=== PATIENT | female | born 1990 | race Caucasian/White ===

== ENCOUNTER → 2017-02-01 | Outpatient (CLI) | payer OTHER ==
[~2017-02-01] MED LIST: ADVIN25/60 INH; FEXO1TAB58 PO; HYDR-5688 PO; LEVAAER2 PO; MONT1TAB3 PO
== END | disposition home or self-care (01) ==
LOC: C.LABSPEC 11:22
PROVIDERS: ATTEND Nurse Practitioner Family
DX: R35.0 Frequency of micturition (principal)

== ENCOUNTER → 2017-02-04 | Outpatient (CLI) | payer BC, OTHER ==
[2017-02-04 13:47] LABS: BLOOD UREA NITROGEN 14 mg/dl (7-18); CREATININE 0.85 mg/dl (0.60-1.20)
== END | disposition home or self-care (01) ==
LOC: C.LAB1850 11:23
PROVIDERS: ATTEND Nurse Practitioner Family
DX: Z87.39 Personal history of other diseases of the musculoskeletal system and connective tissue (principal)

== ENCOUNTER 2021-05-13 08:26 | Inpatient (IN) ==
[2021-05-13] MEDS ORDERED: OXYTOCIN 30 UNITS/500 ML BAG IV PRN ×3 (08:33→22:10)
[2021-05-13] MEDS ORDERED: PENICILLIN G POTASSIUM 6 MU in DEXTROSE 5% 250 ML IV STA (08:39)
[2021-05-13 09:08] LABS: Hematocrit (blood only) 33.8 % (37-47); Hemoglobin 11.5 g/dL (12.0-16.0); Mean Corpuscular Volume 88.3 fL (80-100); Mean Platelet Volume 9.6 fL (7.4-10.4); Platelet Count 232 K/uL (130-400); RDW Standard Deviation 45.3 fL (36.4-46.3); Red Blood Count 3.83 M/uL (4.2-5.4); White Blood Count 8.17 K/uL (4.8-10.8)
[2021-05-13] MEDS: LACTATED RINGER'S 1,000 ML IV PRN ×3 (09:57→17:26)
[2021-05-13] MEDS ORDERED: ePHEDrine sulfate 50 MG/ML AMP ONE (12:16)
[2021-05-13] MEDS ORDERED: fentaNYL citrate 100 MCG/2 ML VIAL ONE (12:16)
[2021-05-13] MEDS ORDERED: BUPIVACAINE 0.25% 30 ML VIAL ONE (12:16)
[2021-05-13] MEDS ORDERED: fentaNYL 2MCG/ML ROPIVACAINE 1.25MG/ML 100 ML BAG EPI ONE (12:16)
--- NOTE | 2021-05-13 12:41 | Anesthesiology Consultation ---
Date of Service May 13, 2021 Assessment & Plan (1) Encounter for pre-operative examination: Chart Review Chart Review: Acceptable Risk for Surgery and Patient NOT seen in Pre Admission Testing Consults Requested none History Height/Weight Height: 5 ft 4.5 in Weight: 85 kg Allergies Allergy/AdvReac Type Severity Reaction Status Date / Time No Known Allergies Allergy Verified 05/12/21 13:59 Medications Home Medications Medication Instructions Recorded Confirmed Last Taken prenat.vits,bhumi,yei-zgrn-enwgw 1 tab PO DAILY 12/17/20 05/13/21 05/12/21 08:00 acetaminophen 500 mg tablet 500 mg PO QID PRN 05/13/21 05/13/21 Unknown lactobacillus combination no.4 3 3,000 mmu cells PO DAILY 05/13/21 05/13/21 05/12/21 billion cell capsule (Probiotic) Active Medications Generic Name Dose Route Start Last Admin Trade Name Freq PRN Reason Stop Dose Admin Oxytocin 30 units in 500 mls @ 5 mls/hr 05/13/21 08:33 05/13/21 12:35 Pitocin IV 05/15/21 08:32 0.42 units/hr .Q24H PRN 7 mls/hr Labor Induction/Augmentation Titration Protocol 0.3 UNITS/HR Lactated Ringer's 1,000 mls @ 125 mls/hr 05/13/21 08:33 05/13/21 12:13 Lr IV 05/15/21 08:32 999 mls/hr .Q8H PRN Infusion L&D Protocol Protocol Past Medical History Medical History Anxiety Back pain Injury to back at 8 weeks . Diagnosed as sciatic pain. Chronic migraine Pancreatitis Past Family History Family History Father Hypertension Mother Hypotension Grandmother (Paternal) Diabetes Breast cancer Hypertension Grandmother (Maternal) Diabetes Other No significant family history Past Surgical History Surgical History History of appendectomy Hx of cholecystectomy [place] teeth extracted Social History Smoking Status: Never smoker Hx Alcohol Use: No Hx Substance Use: No Physical Exam Vital Signs Last Vital Signs Temp 36.6 C 11/23/21 11:07 Pulse 75 05/13/21 11:57 Resp 18 05/13/21 11:07 BP 116/70 05/13/21 11:57 Testing Laboratory Results 05/13/21 08:49
--- NOTE | 2021-05-13 13:20 | History & Physical Report ---
Date of Service May 13, 2021 Assessment & Plan (1) Encounter for induction of labor: (2) Back pain affecting : Plan: plan pit induction, pcn for gbs. arom as indicated. epidural on demand. fetus category one. anticipate . addendum--Patient at 12:30 is requesting epidural. Anesthesia is reluctant to place without any imaging to note no issues with spine. Dr. Atwood is discussing the issue with the patient. Unfortunately this was not addressed before starting induction. Can have the option of going unmedicated. Can stop induction now. Get urgent MRI. If nl mri, then can place epidural and proceed. If cannot place epidural, can then restart and go unmedicated or can offer primary c/s with likely general anesthesia. Dr. Atwood is discussing options with the patient now. There is no reason we can't stop the induction at this po int. Admission and Anticipated Discharge Date Admission Date: May 13, 2021 History of Present Illness Chief Complaint: induction for back pain Primary Care Provider: Arash Montelongo MD Patient is a 31yof, with iup at40 0/7 weeks who presents to labor and delivery for elective induction. Patient's complicated by back pain. she was evaluated by ortho and placed on FMLA. there was a suggestion that she be induced by her due date. Apparantly has significant sciatica. Did apparently do some PT. Patient notes the breen bulb fell out at 5:30 am. She notes some spotting and cramping. No lof. +fm. GBS positive urine. LG pap with neg colpo. Plan pap and colpo pp. OB Labs: Blood Type B Negative 02/19/21 Antibody Screen NEGATIVE 02/19/21 Hemoglobin 11.6 g/dL (12.0-16.0) L 02/19/21 Hematocrit 34.1 % (37-47) L 02/19/21 Mean Corpuscular Volume 89.7 fL (80-100) 07/08/20 Platelet Count 243 K/uL (130-400) 07/08/20 Rapid Plasma Reagin Nonreactive (Nonreactive) 12/27/20 Glucose 1 Hour 50 gm Load 90 mg/dl (70-130) 02/19/21 OB Optional Labs: Thyroid Stimulating Hormone (TSH) 0.790 uIu/ml (0.300-4.500) 07/08/20 Labs Reviewed: Initial OB Labs (09/17/20) Blood Type & RH B negative Antibody Screen negative HCT/HGB 40.7/13.3 Platelets 248 Pap Test LSIL Chlamydia negative Gonorrhea negative Rubella immune RPR Urine Culture/Screen HBsAg negative HIV negative MCV 93.2 Ultrasound NIPT- Low risk CF/SMA negative Allergies Allergy/AdvReac Type Severity Reaction Status Date / Time No Known Allergies Allergy Verified 05/12/21 13:59 Home Medications Medication Instructions Recorded Confirmed Type prenat.vits,bhumi,dqv-ntdu-jtwjl 1 tab PO DAILY 12/17/20 05/13/21 History acetaminophen 500 mg tablet 500 mg PO QID PRN 05/13/21 05/13/21 History lactobacillus combination no.4 3 3,000 mmu cells PO DAILY 05/13/21 05/13/21 History billion cell capsule (Probiotic) Patient History Medical History Anxiety Back pain Injury to back at 8 weeks . Diagnosed as sciatic pain. Chronic migraine Pancreatitis Surgical History History of appendectomy Hx of cholecystectomy [place] teeth extracted Family History Father Hypertension Mother Hypotension Grandmother (Paternal) Diabetes Breast cancer Hypertension Grandmother (Maternal) Diabetes Other No significant family history Social History Smoking Status: Never smoker Hx Alcohol Use: No Hx Substance Use: No Preferred Language: [place]er Communication Ability: Effective Aircraft [employer] Required: No Beliefs That Will Affect Care: None marital status: marital status details: [phone] Joanne, leonardo mom Current Living Situation: Spouse and Parent Current Living Situation Comment: Mother, father, spouse and dogs current occupational status: employed current occupation: [employer] @ [place] in [employer] Other Information That Helps Us Care for You: No Feels Safe at Home: Yes Safety Concerns: Feels Safe At This Time Assistive Devices: Glasses OB History g1--current [employer] History noncontributory Physical Exam Physical Exam: cx---2/mid/soft at admission toco--q4-5 efm--130s with mod variability, accels to 150s, no decels Results & Data ([facility]) Vital Signs (Past 12 Hours) Vital Signs Temp Pulse Resp BP Pulse Ox 05/13/21 13:11 79 99 05/13/21 13:10 90 129/88 05/13/21 11:57 75 116/70 05/13/21 11:07 36.6 C 78 18 123/72 05/13/21 10:08 78 109/62 05/13/21 08:49 37.0 C 18 05/13/21 08:47 78 112/70 Coding Level of Care Code None Diagnoses Encounter for induction of labor Z34.90 Back pain affecting O99.891; M54.9
--- NOTE | 2021-05-13 14:16 | Communication Note ---
Date of Service: May 13, 2021 Patient seen and evaluated by anesthesia. After her neuro exam, she feels she is probably ok with proceeding with epidural. She discussed potential risks of proceeding with that. Patient is concerned that if we get mri now, if another one indicated after delivery , it will not be covered by insurance. A legitimate concerns. Discussed other options of unmedicated labor (which I do not think the patient will tolerate well) or can proceed with c/s under general--discussed r/b/se of c/s, general anesthesia and implications on further pregnancies. Patient desires to take the risk of epidural. Plan to proceed with this. fetus category one. Pitocin was d/c while considering all of this and will be restarted after epidural.
[2021-05-13] MEDS: PENICILLIN G POTASSIUM 3 MU in DEXTROSE 5% 100 ML IV PRN ×2 (14:18→19:02)
[2021-05-13] MEDS ORDERED: ePHEDrine sulfate 50 MG/ML AMP IV PRN (14:21)
[2021-05-13] MEDS ORDERED: NALOXONE HCL 1 MG in SODIUM CHLORIDE 0.9% 1000ML 1,000 ML IV PRN (14:21)
[2021-05-13] MEDS ORDERED: diphenhydrAMINE 50 MG/ML VIAL IV PRN (14:21)
[2021-05-13] MEDS ORDERED: fentaNYL 2MCG/ML ROPIVACAINE 1.25MG/ML 100 ML BAG EPI PRN (14:21)
[2021-05-13] MEDS ORDERED: NALOXONE HCL 0.4 MG/1 ML VIAL/CARP IV PRN (14:21)
[2021-05-13] MEDS ORDERED: NALBUPHINE HCL INJ 10 MG/ML AMP IV PRN (14:21)
[2021-05-13] MEDS: SODIUM CHLORIDE 0.9% INJ 10 ML VIAL ONE ×2 (14:55→15:56)
[2021-05-13] MEDS: ONDANSETRON INJ 2 MG/ML 2 ML VIAL IV PRN ×2 (15:41→21:20)
--- NOTE | 2021-05-13 15:50 | Labor Progress Brief Note ---
Date of Service May 13, 2021 Subjective comfortable with epidural Assessment & Plan (1) Encounter for induction of labor: Plan: Continue current management. fetus category one. Admission and Anticipated Discharge Date Admission Date: May 13, 2021 Physical Exam Physical Exam: cx--/-2 arom--thin mec efm--130s with mod variablilty, accels to 170s, no decels toco--occasional , pit just restarted at 1 Results & Data ([facility]) Vital Signs (Past 12 Hours) Vital Signs Temp Pulse Resp BP Pulse Ox 05/13/21 15:45 37.1 C 80 18 107/59 L 97 05/13/21 15:42 95 H 93 05/13/21 15:40 104 H 105/58 L 95 05/13/21 15:36 121 H 113/71 05/13/21 15:35 130 H 97 05/13/21 15:31 18 05/13/21 15:30 94 H 109/66 97 05/13/21 15:25 90 18 105/56 L 94 05/13/21 15:24 87 94 05/13/21 15:20 83 18 108/58 L 95 05/13/21 15:18 92 H 94 05/13/21 15:15 90 18 109/68 97 05/13/21 15:13 93 H 110/62 05/13/21 15:11 100 H 108/59 L 05/13/21 15:10 99 H 18 97 05/13/21 15:09 105 H 108/59 L 05/13/21 15:07 96 H 18 115/60 05/13/21 15:05 101 H 18 126/66 97 05/13/21 15:03 99 H 18 103/52 L 05/13/21 15:01 94 H 18 104/52 L 05/13/21 15:00 96 H 97 05/13/21 14:59 88 18 105/57 L 05/13/21 14:57 37.1 C 91 H 20 107/55 L 05/13/21 14:55 90 20 103/51 L 96 05/13/21 14:53 83 103/50 L 05/13/21 14:51 90 118/60 05/13/21 14:50 103 H 96 05/13/21 14:49 100 H 124/79 05/13/21 14:47 87 138/69 05/13/21 14:45 83 134/77 96 05/13/21 14:40 84 97 05/13/21 14:35 84 98 05/13/21 14:30 78 97 05/13/21 14:25 91 H 98 05/13/21 14:20 79 99 05/13/21 14:15 89 98 05/13/21 14:10 85 98 05/13/21 14:05 83 99 05/13/21 14:00 89 97 05/13/21 13:55 86 98 05/13/21 13:51 81 93 05/13/21 13:50 78 98 05/13/21 13:45 75 98 05/13/21 13:40 87 98 05/13/21 13:35 83 98 05/13/21 13:30 90 96 05/13/21 13:25 86 98 05/13/21 13:20 37.0 C 82 18 98 05/13/21 13:11 79 99 05/13/21 13:10 90 129/88 05/13/21 11:57 75 116/70 05/13/21 11:07 36.6 C 78 18 123/72 05/13/21 10:08 78 109/62 05/13/21 08:49 37.0 C 18 05/13/21 08:47 78 112/70 Coding Level of Care Code None Diagnoses Encounter for induction of labor Z34.90
--- NOTE | 2021-05-13 17:22 | Labor Progress Brief Note ---
Date of Service May 13, 2021 Subjective comfortable Assessment & Plan (1) Encounter for induction of labor: Plan: Just restarted pit. NOw having variable earlies with contractions. category two strip but good variability and overall reassuring. May need to initiate amnioinfusion if persist. The contractions look adequate, but just need to be closer together. Admission and Anticipated Discharge Date Admission Date: May 13, 2021 Physical Exam Physical Exam: cx--unchanged toco--q5min, long, pit at 1 iupc inserted--first one did not work and replaced and worked fht--while on back to drain bladder , decel to 90s that lasted for about 6 minutes right on top of a contraction. Attempted to place an FSE--worked for a few minutes then suddenly stopped working. Well attached to scalp. Tried to problem solve but would not work so external belt replaced. [id number] wtih mod variability. having variables /early with contractions since arom. Results & Data ([facility]) Vital Signs (Past 12 Hours) Vital Signs Temp Pulse Resp BP Pulse Ox 05/13/21 17:17 80 98/59 L 05/13/21 17:15 85 97 05/13/21 17:10 79 96 05/13/21 17:05 79 95 05/13/21 17:02 72 91/50 L 05/13/21 17:00 76 95 05/13/21 16:55 74 96 05/13/21 16:50 76 96 05/13/21 16:49 71 99/58 L 05/13/21 16:45 70 97 05/13/21 16:40 71 96 05/13/21 16:35 75 95 05/13/21 16:33 74 101/58 L 05/13/21 16:30 76 95 05/13/21 16:25 80 95 05/13/21 16:20 76 95 05/13/21 16:18 73 100/55 L 05/13/21 16:15 77 95 05/13/21 16:10 76 95 05/13/21 16:05 83 94 05/13/21 16:02 74 99/56 L 05/13/21 16:00 82 96 05/13/21 15:58 82 94 05/13/21 15:55 79 94 05/13/21 15:53 83 94 05/13/21 15:50 82 97 05/13/21 15:45 37.1 C 80 18 107/59 L 97 05/13/21 15:42 95 H 93 05/13/21 15:40 104 H 105/58 L 95 05/13/21 15:36 121 H 113/71 05/13/21 15:35 130 H 97 05/13/21 15:31 18 05/13/21 15:30 94 H 109/66 97 05/13/21 15:25 90 18 105/56 L 94 05/13/21 15:24 87 94 05/13/21 15:20 83 18 108/58 L 95 05/13/21 15:18 92 H 94 05/13/21 15:15 90 18 109/68 97 05/13/21 15:13 93 H 110/62 05/13/21 15:11 100 H 108/59 L 05/13/21 15:10 99 H 18 97 05/13/21 15:09 105 H 108/59 L 05/13/21 15:07 96 H 18 115/60 05/13/21 15:05 101 H 18 126/66 97 05/13/21 15:03 99 H 18 103/52 L 05/13/21 15:01 94 H 18 104/52 L 05/13/21 15:00 96 H 97 05/13/21 14:59 88 18 105/57 L 05/13/21 14:57 37.1 C 91 H 20 107/55 L 05/13/21 14:55 90 20 103/51 L 96 05/13/21 14:53 83 103/50 L 05/13/21 14:51 90 118/60 05/13/21 14:50 103 H 96 05/13/21 14:49 100 H 124/79 05/13/21 14:47 87 138/69 05/13/21 14:45 83 134/77 96 05/13/21 14:40 84 97 05/13/21 14:35 84 98 05/13/21 14:30 78 97 05/13/21 14:25 91 H 98 05/13/21 14:20 79 99 05/13/21 14:15 89 98 05/13/21 14:10 85 98 05/13/21 14:05 83 99 05/13/21 14:00 89 97 05/13/21 13:55 86 98 11/23/21 13:51 81 93 05/13/21 13:50 78 98 05/13/21 13:45 75 98 05/13/21 13:40 87 98 05/13/21 13:35 83 98 05/13/21 13:30 90 96 05/13/21 13:25 86 98 05/13/21 13:20 37.0 C 82 18 98 05/13/21 13:11 79 99 05/13/21 13:10 90 129/88 05/13/21 11:57 75 116/70 05/13/21 11:07 36.6 C 78 18 123/72 05/13/21 10:08 78 109/62 05/13/21 08:49 37.0 C 18 05/13/21 08:47 78 112/70 Coding Level of Care Code None Diagnoses Encounter for induction of labor Z34.90
[2021-05-13] MEDS ORDERED: NURSING L&D Epidural Breakthrough Pain Update ONE (19:46)
--- NOTE | 2021-05-13 20:47 | Labor Progress Brief Note ---
Date of Service May 13, 2021 Subjective comfortable Assessment & Plan (1) Encounter for induction of labor: Plan: Fetus overall reassuring category two. Making progress so will not go up on pit despite abnl contraction pattern. Will hopefully be able to labor down. Will continue to watch closely. Hope for vaginal delivery. Admission and Anticipated Discharge Date Admission Date: May 13, 2021 Physical Exam Physical Exam: cx--rim/0 toco--q2-4, runs of contractions, pit at 13 efm--130s with mod variability, small accels, variable /early with contractions, one prolonged decel with an episode of tachysystole. Only tolerates left sided positioning. Results & Data ([facility]) Vital Signs (Past 12 Hours) Vital Signs Temp Pulse Resp BP Pulse Ox 05/13/21 20:40 80 99 05/13/21 20:35 88 98 05/13/21 20:34 82 107/58 L 05/13/21 20:30 75 100 05/13/21 20:25 73 100 05/13/21 20:20 82 97 05/13/21 20:17 75 101/55 L 05/13/21 20:15 76 97 05/13/21 20:10 75 99 05/13/21 20:05 76 98 05/13/21 20:03 73 106/64 05/13/21 20:00 72 16 96 05/13/21 19:55 75 99 05/13/21 19:50 78 98 05/13/21 19:47 71 110/61 05/13/21 19:45 74 97 05/13/21 19:40 75 99 05/13/21 19:35 74 97 05/13/21 19:33 74 116/66 05/13/21 19:30 78 18 97 05/13/21 19:25 79 99 05/13/21 19:20 82 97 05/13/21 19:18 75 127/72 05/13/21 19:15 105 H 97 05/13/21 19:13 104 H 86 L 05/13/21 19:10 36.6 C 84 18 92 05/13/21 19:05 78 99 05/13/21 19:04 71 129/65 05/13/21 19:00 72 98 05/13/21 18:55 71 95 05/13/21 18:50 70 98 05/13/21 18:49 67 103/64 05/13/21 18:45 76 99 05/13/21 18:40 76 98 05/13/21 18:35 68 18 98 05/13/21 18:32 67 105/59 L 05/13/21 18:30 70 99 05/13/21 18:25 74 98 05/13/21 18:20 76 100 05/13/21 18:18 71 107/62 05/13/21 18:15 96 H 98 05/13/21 18:10 68 96 05/13/21 18:05 77 18 98 05/13/21 18:03 67 103/57 L 05/13/21 18:00 77 98 05/13/21 17:55 70 98 05/13/21 17:50 71 98 05/13/21 17:47 70 92/53 L 05/13/21 17:45 73 99 05/13/21 17:40 69 98 05/13/21 17:37 69 90/51 L 05/13/21 17:35 69 97 05/13/21 17:32 74 89/54 L 05/13/21 17:30 71 18 95 05/13/21 17:25 75 95 05/13/21 17:20 84 97 05/13/21 17:17 80 98/59 L 05/13/21 17:15 36.9 C 85 20 97 05/13/21 17:10 79 96 05/13/21 17:05 79 95 05/13/21 17:02 72 91/50 L 05/13/21 17:00 76 95 05/13/21 16:58 18 05/13/21 16:55 74 96 05/13/21 16:50 76 96 05/13/21 16:49 71 99/58 L 05/13/21 16:45 70 97 05/13/21 16:40 71 96 05/13/21 16:35 75 95 05/13/21 16:33 74 101/58 L 05/13/21 16:30 76 18 95 05/13/21 16:25 80 95 05/13/21 16:20 76 95 05/13/21 16:18 73 100/55 L 05/13/21 16:15 77 95 05/13/21 16:10 76 95 05/13/21 16:05 83 94 05/13/21 16:02 74 99/56 L 05/13/21 16:00 82 18 96 05/13/21 15:58 82 94 05/13/21 15:55 79 94 05/13/21 15:53 83 94 05/13/21 15:50 82 97 05/13/21 15:45 37.1 C 80 18 107/59 L 97 05/13/21 15:42 95 H 93 05/13/21 15:40 104 H 105/58 L 95 05/13/21 15:36 121 H 113/71 05/13/21 15:35 130 H 97 05/13/21 15:31 18 05/13/21 15:30 94 H 109/66 97 05/13/21 15:25 90 18 105/56 L 94 05/13/21 15:24 87 94 05/13/21 15:20 83 18 108/58 L 95 05/13/21 15:18 92 H 94 05/13/21 15:15 90 18 109/68 97 05/13/21 15:13 93 H 110/62 05/13/21 15:11 100 H 108/59 L 05/13/21 15:10 99 H 18 97 05/13/21 15:09 105 H 108/59 L 05/13/21 15:07 96 H 18 115/60 05/13/21 15:05 101 H 18 126/66 97 05/13/21 15:03 99 H 18 103/52 L 05/13/21 15:01 94 H 18 104/52 L 05/13/21 15:00 96 H 97 05/13/21 14:59 88 18 105/57 L 05/13/21 14:57 37.1 C 91 H 20 107/55 L 05/13/21 14:55 90 20 103/51 L 96 05/13/21 14:53 83 103/50 L 05/13/21 14:51 90 118/60 05/13/21 14:50 103 H 96 05/13/21 14:49 100 H 124/79 05/13/21 14:47 87 138/69 05/13/21 14:45 83 134/77 96 05/13/21 14:40 84 97 05/13/21 14:35 84 98 05/13/21 14:30 78 97 05/13/21 14:25 91 H 98 05/13/21 14:20 79 99 05/13/21 14:15 89 98 05/13/21 14:10 85 98 05/13/21 14:05 83 99 05/13/21 14:00 89 97 05/13/21 13:55 86 98 05/13/21 13:51 81 93 05/13/21 13:50 78 98 05/13/21 13:45 75 98 05/13/21 13:40 87 98 05/13/21 13:35 83 98 05/13/21 13:30 90 96 05/13/21 13:25 86 98 05/13/21 13:20 37.0 C 82 18 98 05/13/21 13:11 79 99 05/13/21 13:10 90 129/88 05/13/21 11:57 75 116/70 05/13/21 11:07 36.6 C 78 18 123/72 05/13/21 10:08 78 109/62 05/13/21 08:49 37.0 C 18 05/13/21 08:47 78 112/70 Coding Level of Care Code None Diagnoses Encounter for induction of labor Z34.90
[2021-05-13] MEDS ORDERED: DIPHTHERIA/TETANUS/PERTUSSIS 0.5 ML SYR/VIAL IM ONE (22:10)
[2021-05-13] MEDS ORDERED: SUPERCREAM 0.870% 15 GM JAR EXT PRN (22:10)
[2021-05-13] MEDS ORDERED: bisacodyL 10 MG SUPP PR PRN (22:10)
[2021-05-13] MEDS ORDERED: BENZOCAINE 20% AER SPR 82.5 GM CAN EXT PRN (22:10)
[2021-05-13] MEDS ORDERED: ACETAMINOPHEN 325 MG TAB PO PRN (22:10)
[2021-05-13] MEDS ORDERED: HYDROCORTISONE ACETATE 25 MG SUPP PR PRN (22:10)
[2021-05-13] MEDS ORDERED: oxyCODONE/ACETAMINOPHEN 5mg/325mg TAB PO PRN (22:10)
[2021-05-13 22:19] LABS: Base Excess Cord Arterial Bld -4.6 mEq/L (-9-1.8); Base Excess Cord Venous Blood -4.8 mEq/L (-7.7-1.9); CO2 Cord Arterial Blood 57 mmHg (39.1-73.5); Cord Venous Blood HCO3 22 mmol/L (18.4-26.8); Cord Venous Blood PCO2 49 mmHg (30.4-57.2); Cord Venous Blood PO2 26 mmHg (14.1-43.3); Cord Venous Blood pH 7.28 (7.20-7.44); HCO3 Cord Arterial Blood 24 mmol/L (19.7-28.5); PO2 Cord Arterial Blood 23 mmHg (4.1-31.7); pH Cord Arterial Blood 7.24 (7.1-7.38)
[2021-05-13 22:20] LABS: Oxygen Sat Cord Arterial Blood < 60.0 % (<60)
--- NOTE | 2021-05-13 22:20 | Delivery Summary ---
Vaginal Delivery Summary Date of Service May 13, 2021 Vaginal Delivery Summary and 1st Degree LAC Pre-operative Diagnosis: at 40 weeks chronic back pain Post-operative Diagnosis: same thin meconium nuchal cord x 1 Procedure: breen bulb for cervical ripening pitocin induction epidural arom iupc first degree laceration and repair EBL: 300cc Anesthesia: epidural Procedure: The patient presented for elective induction on her due date for chronic back pain. She had a breen placed the night before that had fallen out on the day of admission. Pitocin was started. She underwent and epidural then arom for thinn meconium. After arom, fetus started have variables with contractions. She never had a very good contraction pattern and had runs of contractions and small periods of tachysystole leading to some prolonged decels. However, the baby always recovered with small accels and good variability. She progressed to c/c/0 and labored down for about an hour. The patient pushed for 15min to deliver a viable male in karen. position. The nose and mouth were bulb suctioned on the perineum and a tight nuchal cord x 1 was clamped and cut. The rest of the was then delivered without difficulty. The baby was a l ittle floppy after being placed on the maternal abdomen and so was transferred to the crib for drying and attention. Cord blood and segment obtained. Placenta delivered spontaneous, intact with a three vessel cord. Cervix/sulci/rectum were intact. A first degree perineal laceration was repaired in the normal standard fashion. Hemostasis obtained with dilute pitocin and fundal massage. Apgars were 7/9. Mother and baby doing well at the end of the delivery Just right before pushing the patient complained of severe pain in the center of her back and up into her left shoulder. We obtained a stat ekg which showed normal sinus rhythm and no concerning features. The patient was able to push with this pain to delivery the baby. After delivery, patient noted the pain was still there but was lessening. Patient was having some fairly violent vomiting so may be MSK from that or perhaps from anxiety. Pulse ox was normal throughout and not significantly tachy beyond where she would normally have been in the the labor process. Will continue to monitor closely for changes and resolution.. [facility] Vaginal Delivery Charge Delivery Type Details: and 1st Degree LAC
[2021-05-13 22:21] LABS: O2 Saturation Cord Venous Bld < 60.0 % (<68)
--- NOTE | 2021-05-13 22:38 | Anesthesia Procedure Note ---
Date of Service May 13, 2021 Anesthesia Post Epidural Note Vital Signs Vital Signs: Temp Pulse Resp BP Pulse Ox 36.7 C 86 18 120/67 95 05/13/21 20:40 05/13/21 22:27 05/13/21 21:00 05/13/21 22:27 05/13/21 22:05 Pain Intensity Right Hip: Pain Intensity: 2 Notes Mental Status: alert / awake / arousable and participated in evaluation Nausea / Vomiting: adequately controlled Pain: adequately controlled Airway Patency, RR, SpO2: stable & adequate BP & HR: stable & adequate Hydration State: stable & adequate Neuraxial Anesthesia: was administered and sensory block is resolving Anesthetic Complications: no major complications apparent and Pt Satisfied with anesthetic care Epidural: Removed without complications and With tip intact Notes: Epidural site clean, dry and intact. No signs of edema, erythema or bruising at insertion site. Pt instructed to request anesthesia if she has residual lower extremity numbness or if she develops lower extremity pain or weakness, back pain or headache.
[2021-05-14] MEDS: IBUPROFEN 600 MG TAB PO PRN ×5 (00:30→21:38)
--- NOTE | 2021-05-14 06:18 | Obstetrical Progress Note ---
Date of Service <Adenike Perez MD - Last Filed: 05/14/21 07:22> May 14, 2021 Assessment & Plan <Adenike Perez MD - Last Filed: 05/14/21 07:22> (1) Vaginal delivery: 31 yo now PPD1 from [facility] at 40 weeks -Continue routine care, education -Vitals reviewed- HDS, afebrile -Blood type B-, GBS+, Rubella immune -Encourage ambulation, regular diet -Pain control with ibuprofen, acetaminophen PRN -Encourage -Hgb stable at 11, asymptomatic -F/u in 6 weeks with OB (2) Back pain: -Likely MSK/biomechanical etiology -EKG neg for cardiac injury -Continue to monitor <Monica Roy MD, FACOG - Last Filed: 05/14/21 07:53> (1) Vaginal delivery: (2) Back pain: Subjective <Adenike Perez MD - Last Filed: 05/14/21 07:22> Ambulation: ambulating normally Voiding: no voiding problems Passing Gas:: Yes Diet Tolerance:: regular diet Lochia:: Moderate Feeding Type:: breast feeding Current Pain Level(1-10): 5 Pt doing well overall, complains of some mild-moderate general soreness. Still experiencing back pain but has significantly improved. Pain well controlled on medications at this time. Review of Systems +Back pain Denies fevers/chills. Denies dyspnea, cough. Denies chest pain. Denies breast pain or discharge. Denies dysuria. Denies headache. Physical Exam <Adenike Perez MD - Last Filed: 05/14/21 07:22> General: Alert, oriented, no acute distress Cardiac: Regular rate and rhythm, normal S1, S2. No murmurs appreciated. Respiratory: Clear to auscultation b/l with good air flow entry, symmetric chest rise and fall. No wheezes or crackles. No increased work of breathing or accessory muscle use Abdomen: Soft, nontender, nondistended. Fundus firm and palpable at 1 cm below umbilicus. No guarding or rebound. Skin: No rashes or lesions Extremities: Warm, dry, well-perfused with capillary refill <2s b/l. No lower extremity edema, erythema or swelling. Negative Jaspal's sign b/l. Results & Data ([facility]) <Adenike Perez MD - Last Filed: 05/14/21 07:22> Vital Signs (Past 12 Hours) Vital Signs Temp Pulse Pulse Resp BP BP Pulse Ox 05/14/21 05:00 36.5 C 69 16 114/73 97 05/14/21 01:00 36.7 C 75 16 111/70 97 05/14/21 00:12 80 108/59 L 05/14/21 00:10 37.3 C 20 05/13/21 23:57 86 107/57 L 05/13/21 23:42 83 121/73 05/13/21 23:40 20 05/13/21 23:27 89 120/57 L 05/13/21 23:18 75 113/55 L 05/13/21 23:10 20 05/13/21 22:57 82 114/67 05/13/21 22:55 18 05/13/21 22:42 82 118/70 05/13/21 22:40 18 05/13/21 22:27 86 120/67 05/13/21 22:25 20 05/13/21 22:10 18 05/13/21 22:09 89 120/69 05/13/21 22:05 91 H 95 05/13/21 22:02 89 128/72 05/13/21 22:00 83 97 05/13/21 21:57 20 05/13/21 21:55 82 100 05/13/21 21:50 75 98 05/13/21 21:48 80 130/70 05/13/21 21:45 84 100 05/13/21 21:40 84 98 05/13/21 21:35 82 97 05/13/21 21:32 75 116/66 05/13/21 21:30 94 H 20 99 05/13/21 21:25 77 99 05/13/21 21:20 89 97 05/13/21 21:18 90 112/62 05/13/21 21:15 82 98 05/13/21 21:10 81 98 05/13/21 21:05 110 H 98 05/13/21 21:02 81 113/81 05/13/21 21:00 83 18 99 05/13/21 20:55 84 99 05/13/21 20:50 80 99 05/13/21 20:47 79 110/76 05/13/21 20:45 88 98 05/13/21 20:40 36.7 C 80 99 05/13/21 20:35 88 98 05/13/21 20:34 82 107/58 L 05/13/21 20:30 75 16 100 05/13/21 20:25 73 100 05/13/21 20:20 82 97 05/13/21 20:17 75 101/55 L 05/13/21 20:15 76 97 05/13/21 20:10 75 99 05/13/21 20:05 76 98 05/13/21 20:03 73 106/64 05/13/21 20:00 72 16 96 05/13/21 19:55 75 99 05/13/21 19:50 78 98 05/13/21 19:47 71 110/61 05/13/21 19:45 74 97 05/13/21 19:40 75 99 05/13/21 19:35 74 97 05/13/21 19:33 74 116/66 05/13/21 19:30 78 18 97 05/13/21 19:25 79 99 05/13/21 19:20 82 97 05/13/21 19:18 75 127/72 05/13/21 19:15 105 H 97 05/13/21 19:13 104 H 86 L 05/13/21 19:10 36.6 C 84 18 92 05/13/21 19:05 78 99 05/13/21 19:04 71 129/65 05/13/21 19:00 72 98 05/13/21 18:55 71 95 05/13/21 18:50 70 98 05/13/21 18:49 67 103/64 05/13/21 18:45 76 99 05/13/21 18:40 76 98 05/13/21 18:35 68 18 98 05/13/21 18:32 67 105/59 L 05/13/21 18:30 70 99 05/13/21 18:25 74 98 05/13/21 18:20 76 100 05/13/21 18:18 71 107/62 <Monica Roy MD, FACOG - Last Filed: 05/14/21 07:53> Co-Signing Physician Notes Resident Physician Supervision Note: I interviewed and examined the patient. Discussed with Dr. Perez and agree with findings and plan as documented in the note. Any exceptions or clarifications are listed here: Doing well this am. Patient notes that her back pain is significantly improved, although, still there. Do not think cardiac , but likely msk. Will continue to monitor. routine care. Documented By: Monica Roy MD, FACOG Resident Activity Tracking <Adenike Perez MD - Last Filed: 05/14/21 07:22> Resident Involvement: Resident Care Provided Care Provided: OB Delivery
[2021-05-14 07:08] LABS: Hematocrit (blood only) 32.4 % (37-47); Mean Corpuscular Volume 88.3 fL (80-100); Mean Platelet Volume 9.5 fL (7.4-10.4); Platelet Count 215 K/uL (130-400); RDW Coefficient of Variation 14.1 % (11.5-14.5); Red Blood Count 3.67 M/uL (4.2-5.4)
[2021-05-14] MEDS: DOCUSATE SODIUM 100 MG CAP PO SCH ×2 (08:34→19:51)
[2021-05-14] MEDS: PRENATAL VITAMIN 1 TAB PO SCH (08:35)
[2021-05-14] MEDS ORDERED: bisacodyL 5 MG TABEC PO SCH (20:00)
[2021-05-15 00:16] VITALS: O2SAT 98
[2021-05-15] MEDS: IBUPROFEN 600 MG TAB PO PRN ×4 (03:14→16:31)
--- NOTE | 2021-05-15 06:22 | Electrocardiogram Report ---
Test Reason : Blood Pressure : / mmHG Vent. Rate : 078 BPM Atrial Rate : 078 BPM P-R Int : 140 ms QRS Dur : 070 ms QT Int : 386 ms P-R-T Axes : 037 010 022 degrees QTc Int : 440 ms Normal sinus rhythm Low voltage QRS Borderline ECG When compared with ECG of 08-JUL-2020 18:54, No significant change was found Confirmed by Francis Verdugo ([id number]) on 05/15/2021 6:22:02 AM Referred By: Monica Roy Confirmed By:Francis Vedrugo
--- NOTE | 2021-05-15 07:12 | Obstetrical Progress Note ---
Date of Service May 15, 2021 Assessment & Plan (1) Vaginal delivery: 31 yo PP2 from , doing well -Meeting all pp milestones. Upper back pain is improved, now just the stable low back pain and c/w MSK -B-, s/p rhogam/rubella immune/ -stable for d/c home today, f/u 6 weeks for appt Subjective Ambulation: ambulating normally Voiding: no voiding problems Passing Gas:: Yes Diet Tolerance:: regular diet Lochia:: Small Feeding Type:: breast feeding Pain well managed with medication Review of Systems Denies fevers, chills, n/v, SMITH, CP, SOB Physical Exam Constitutional WD/WN, vitals as above no acute distress Respiratory normal respiratory effort; no respiratory distress and no labored breathing Gastrointestinal (Abdomen) Percussion/Palpation: abdomen soft; abdomen nontender fundus firm at umbilicus and NT Musculoskeletal BLE symmetric, nonerythematous, nontender Results & Data ([facility]) Vital Signs (Past 12 Hours) Vital Signs Temp Pulse Resp BP Pulse Ox 05/14/21 23:25 98.1 F 80 18 104/67 98 05/14/21 19:30 98.6 F 84 18 116/70 97
[2021-05-15] MEDS: DOCUSATE SODIUM 100 MG CAP PO SCH (08:28)
[2021-05-15] MEDS: PRENATAL VITAMIN 1 TAB PO SCH (08:28)
[2021-05-15 16:09] VITALS: BP 113/77; PULSE 79; TEMP 98.6
== END 2021-05-15 17:55 | disposition home or self-care (01) | DRG 807 ==
LOC: 4S1 08:26 → 4S2 05-14 00:43
DX: O99.824 Streptococcus B carrier state complicating childbirth; M25.512 Pain in left shoulder; Z37.0 Single live birth; O70.0 First degree perineal laceration during delivery; Z3A.40 40 weeks gestation of pregnancy; O77.0 Labor and delivery complicated by meconium in amniotic fluid; G89.21 Chronic pain due to trauma; M54.89 Other dorsalgia; M54.41 Lumbago with sciatica, right side; O36.8330 Maternal care for abnormalities of the fetal heart rate or rhythm, third trimester, not applicable or unspecified; O99.354 Diseases of the nervous system complicating childbirth; Z79.899 Other long term (current) drug therapy; O69.1XX0 Labor and delivery complicated by cord around neck, with compression, not applicable or unspecified; O26.893 Other specified pregnancy related conditions, third trimester